=== PATIENT | male | born 1965 | race American Indian/Alaskan Native ===

== ENCOUNTER 2017-11-04 21:24 | Inpatient (IN) | payer SELFPAY ==
[2017-11-04 23:14] LABS: Basophils % (Auto) 0.5 % (0.0-1.8); Eosinophils % (Auto) 0.3 % (0.0-4.3); Hematocrit 43.3 % (35.5-45.6); Hemoglobin 14.1 gm/dl (11.8-15.2); Lymphocytes # (Auto) 2.1 K/mm3 (1.2-5.4); Lymphocytes % (Auto) 22.4 % (13.4-35.0); Mean Corpuscular HGB Conc 33 % (32-34); Mean Corpuscular Hemoglobin 27 pg (28-32); Mean Corpuscular Volume 84 fl (84-94); Monocytes # (Auto) 0.8 K/mm3 (0.0-0.8); Monocytes % (Auto) 8.2 % (0.0-7.3); Platelet Count 241 K/mm3 (140-440); Red Blood Count 5.18 M/mm3 (3.65-5.03); Red Cell Distribution Width 17.5 % (13.2-15.2)
--- NOTE | 2017-11-04 23:22 | Emergency Department Report ---
HPI - General Chief Complaint: Dizziness Time Seen by Provider: 11/04/17 22:36 - HPI HPI: 52-year-old male presents to the emergency department with complaint of having an incident earlier while at work where he suddenly became very dizzy, as if he was going to pass out, and had some numbness and/or tingling to the left side of his face, the left side of the neck and his left hand. 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 He denies any chest pain, shortness of breath, vision change, headache. He does not have any past medical history. He did not take anything for her symptoms. Presentation. He does not have a primary care physician. Currently the patient says that the symptoms have mostly resolved but he is just concerned about what occurred earlier. He has a tobacco smoker and occasionally will smoke marijuana. ED Past Medical Hx - Past Medical History Additional medical history: Back pain - Surgical History Additional Surgical History: back - Social History Smoking Status: Current Every Day Smoker Substance Use Type: None - Medications Home Medications: Home Medications Medication Instructions Recorded Confirmed Last Taken Type Methocarbamol [Robaxin TAB] 750 mg PO BID #20 tab 04/11/15 Unknown Rx oxyCODONE /ACETAMINOPHEN [Percocet 1 tab PO Q6HR PRN #10 tablet 04/11/15 Unknown Rx 5/325] ED Review of Systems ROS: Stated complaint: HEADACHES Other details as noted in HPI Comment: All other systems reviewed and negative Constitutional: denies: chills, fever Eyes: denies: eye pain, eye discharge, vision change ENT: denies: ear pain, throat pain Respiratory: denies: cough, shortness of breath, wheezing Cardiovascular: denies: chest pain, palpitations Gastrointestinal: denies: abdominal pain, nausea, diarrhea Genitourinary: denies: urgency, dysuria Musculoskeletal: denies: back pain, joint swelling, arthralgia Skin: denies: rash, lesions Neurological: numbness, paresthesias, other (dizziness) Physical Exam - Physical Exam Vital Signs: Vital Signs 11/04/17 22:16 Temperature 98.4 F Pulse Rate 61 Respiratory 18 Rate Blood Pressure 137/73 O2 Sat by Pulse 98 Oximetry Physical Exam: GENERAL: The patient is well-developed well-nourished. HENT: Normocephalic. Atraumatic. Patient has moist mucous membranes. EYES: Extraocular motions are intact. Pupils equal reactive to light bilaterally. NECK: Supple. Trachea is midline. CHEST/LUNGS: Clear to auscultation. There is no respiratory distress noted. HEART/CARDIOVASCULAR: Regular. There is no tachycardia. There is no murmur. ABDOMEN: Abdomen is soft, nontender. Patient has normal bowel sounds. There is no abdominal distention. SKIN: Skin is warm and dry. NEURO: The patient is awake, alert, and oriented. The patient is cooperative. There is normal speech. Cranial nerves II through XII grossly intact. No pronator drift. No dysmetria. There is some decreased subjective sensation to the left side of the face when compared to the right. MUSCULOSKELETAL: There is no tenderness or deformity. There is no limitation range of motion. There is no evidence of acute injury. Muscle strength 5 out of 5 upper and lower extremity bilaterally. ED Course Vital Signs 11/04/17 22:16 Temperature 98.4 F Pulse Rate 61 Respiratory 18 Rate Blood Pressure 137/73 O2 Sat by Pulse 98 Oximetry - Reevaluation(s) Reevaluation #1: 11/05/17 01:45 NIH Stroke Scale/Score (NIHSS) RESULT SUMMARY: 1 points NIH Stroke Scale INPUTS: 1A: Level of consciousness > 0 = Alert; keenly responsive 1B: Ask month and age > 0 = Both questions right 1C: 'Blink eyes' & 'squeeze hands' > 0 = Performs both tasks 2: Horizontal extraocular movements > 0 = Normal 3: Visual dumas > 0 = No visual loss 4: Facial palsy > 0 = Normal symmetry 5A: Left arm motor drift > 0 = No drift for 10 seconds 5B: Right arm motor drift > 0 = No drift for 10 seconds 6A: Left leg motor drift > 0 = No drift for 5 seconds 6B: Right leg motor drift > 0 = No drift for 5 seconds 7: Limb Ataxia > 0 = No ataxia 8: Sensation > 1 = Mild-moderate loss: less sharp/more dull 9: Language/aphasia > 0 = Normal; no aphasia 10: Dysarthria > 0 = Normal 11: Extinction/inattention > 0 = No abnormality - Consultations Consultation #1: I spoke with Dr. Saxena, telemedicine neurologist, who listened to the patient's case presentation and recommends admission for this patient for an MRI and further stroke workup. 11/05/17 01:42 ED Medical Decision Making - Lab Data Result diagrams: 11/04/17 22:54 11/04/17 22:54 - EKG Data -: EKG Interpreted by Me EKG shows normal: sinus rhythm, axis (left axis deviation), intervals, QRS complexes (Q waves to the septal leads), ST-T waves (nonspecific ST-T waves) Rate: normal - EKG Data When compared to previous EKG there are: previous EKG unavailable Interpretation: other (signs rhythm, 92 bpm, left axis deviation, Q waves to the septal leads, nonspecific ST-T waves) - Radiology Data Radiology results: report reviewed PROCEDURE: CT HEAD/BRAIN WO CON TECHNIQUE: Computerized tomography of the head was performed without contrast material. HISTORY: dizziness COMPARISON: No prior studies are available for comparison. FINDINGS: Skull and scalp: Normal. Paranasal sinuses: Normal. Ventricles and subarachnoid spaces: Normal. Cerebrum: No evidence of hemorrhage, acute infarction or mass . Cerebellum and brainstem: No evidence of hemorrhage, acute infarction or mass. Vasculature: Normal. Comments: None. IMPRESSION: There is no evidence of an acute intracranial process Transcribed By: [facility] Dictated By: KIM MÉNDEZ MD Electronically Authenticated By: KIM MÉNDEZ MD Signed Date/Time: 11/04/17 7650 - Medical Decision Making Patient presents with complaint of having some acute dizziness and some numbness to the left side of the head/face/neck and into the left hand. Patient 's symptoms have improved and right now he just has some numbness towards the left side of the face. CT of the head did not show any shift, mass, ischemia or any acute process. On physical exam, the patient is an NIH stroke scale of 1. On top of it being a low stroke scale, the last known well time was many hours ago while the patient was still working and he is outside any window for TPA. No pronator drift or dysmetria. Labs were unremarkable and do not show any etiology of his symptoms. His EKG does not show any ST elevation [place]. After speaking with the telemedicine neurologist, the patient will be admitted to the hospital for further evaluation that will most likely include an MRI. He has been accepted for admission by the hospitalist, Dr Trevino. - Differential Diagnosis TIA, CVA, dysrhythmia, hypoglycemia Critical Care Time: No Critical care attestation.: If time is entered above; I have spent that time in minutes in the direct care of this critically ill patient, excluding procedure time. ED Disposition Clinical Impression: Dizziness, Numbness and tingling of left side of face, Tobacco use Disposition: OP ADMIT IP TO THIS HOSP Is pt being admited?: Yes Does the pt Need Aspirin: Yes Condition: Stable Time of Disposition: 01:46
--- NOTE | 2017-11-04 23:47 | Cat Scan Report ---
FINAL REPORT PROCEDURE: CT HEAD/BRAIN WO CON TECHNIQUE: Computerized tomography of the head was performed without contrast material. HISTORY: dizziness COMPARISON: No prior studies are available for comparison. FINDINGS: Skull and scalp: Normal. Paranasal sinuses: Normal. Ventricles and subarachnoid spaces: Normal. Cerebrum: No evidence of hemorrhage, acute infarction or mass . Cerebellum and brainstem: No evidence of hemorrhage, acute infarction or mass. Vasculature: Normal. Comments: None. IMPRESSION: There is no evidence of an acute intracranial process
[2017-11-05 00:33] LABS: Alanine Aminotransferase 17 units/L (7-56); Albumin 4.5 g/dL (3.9-5); BUN/Creatinine Ratio 11; Blood Urea Nitrogen 15 mg/dL (9-20); Calcium 9.5 mg/dL (8.4-10.2); Hemolysis Index 14
[2017-11-05] MEDS ORDERED: PROVENTIL IH PRN (01:43)
[2017-11-05] MEDS ORDERED: MILK OF MAGNESIA PO PRN (01:43)
[2017-11-05] MEDS ORDERED: DULCOLAX PR PRN (01:43)
[2017-11-05] MEDS ORDERED: SODIUM CHLORIDE FLUSH SYRINGE 10 ML IV PRN (01:43)
[2017-11-05] MEDS ORDERED: TYLENOL PO PRN (01:43)
[2017-11-05] MEDS ORDERED: ZOFRAN IV PRN (01:43)
[2017-11-05] MEDS ORDERED: BABY ASPIRIN PO ONE (01:46)
--- NOTE | 2017-11-05 01:50 | History and Physical Report ---
History of Present Illness Date of examination: 11/05/17 History of present illness: Fluids 2-year-old man with medical problems comes emergency room with complaints of feeling dizzy while at work around 8:00. He'll also experience left side numbness from his face down to the legs. He symptoms have now been resolved Review of systems Constitutional: no weight loss, chills, fever Ears, eyes, nose, mouth and throat: no nasal congestion, no nasal discharge, no sinus pressure, no vision change, no red eye. Neck: No neck pain or rigidity. Cardiovascular: no chest pain, palpitations Respiratory: no cough, shortness of breath Gastrointestinal: no abdominal pain hematochezia Genitourinary : no frequency , no hematuria Musculoskeletal: no joint swelling or muscle ache Integumentary: no rash, no pruritis Neurological: no focal weakness Endocrine: no cold or heat intolerance, no polyuria or polydipsia Hematologic/Lymphatic: no easy bruising, no easy bleeding, no gland swelling Allergic/Immunologic: no urticaria, no angioedema. PAST MEDICAL HISTORY: None PAST SURGICAL HISTORY: Lobectomy SOCIAL HISTORY: No alcohol, marijuana and tobacco use FAMILY HISTORY: Hypertension Medications and Allergies Allergies Allergy/AdvReac Type Severity Reaction Status Date / Time No Known Allergies Allergy Verified 04/22/13 06:31 Home Medications Medication Instructions Recorded Confirmed Last Taken Type Methocarbamol [Robaxin TAB] 750 mg PO BID #20 tab 04/11/15 Unknown Rx oxyCODONE /ACETAMINOPHEN [Percocet 1 tab PO Q6HR PRN #10 tablet 04/11/15 Unknown Rx 5/325] Exam - Physical Exam Narrative exam: Gen. appearance: Patient lying in bed, no apparent distress HEENT: Normocephalic, atraumatic, pupils equally round and reactive to light, extraocular movement intact, and no sclericterus,. No JVD or thyromegaly or nodule,neck supple, no carotid bruit ,mucous membranes moist, no exudate or erythema Heart: S1, S2, regular rate and rhythm Lungs: Clear bilaterally, breathing comfortable Abdomen: Positive bowel sounds, non-tender, nondistended, no organomegaly Extremity:no edema cyanosis, clubbing Skin: no rash, dry, warm Neuro: Oriented 3, cranial nerves II-12 intact, speech is fluent, motor and sensory intact - Constitutional Vitals: Temp Pulse Resp BP Pulse Ox 98.4 F 83 14 122/71 98 11/04/17 22:16 11/05/17 00:00 11/05/17 00:00 11/05/17 00:00 11/05/17 00:00 Results - Labs CBC & Chem 7: 11/04/17 22:54 11/04/17 22:54 Labs: Abnormal lab results 11/04/17 11/04/17 Range/Units 22:54 22:54 RBC 5.18 H (3.65-5.03) M/mm3 MCH 27 L (28-32) pg RDW 17.5 H (13.2-15.2) % [place] % (Auto) 8.2 H (0.0-7.3) % Magnesium 2.40 H (1.7-2.3) mg/dL - Imaging and Cardiology CT Scan - head: report reviewed Assessment and Plan Assessment TIA Plan Admit to medicine Obtain MRI of the head, carotid Doppler, echo Neurochecks, swallow screen Start aspirin, statin [employer] neurology, physical and occupational therapy DVT prophylaxis
[2017-11-05 01:58] LABS: Bilirubin,Urine NEG (Negative); Blood,Urine NEG (Negative); Color,Urine Yellow (Yellow); Mucus,Urine FEW /HPF; Protein,Urine <15 mg/dL mg/dL (Negative); Urobilinogen,Urine < 2.0 mg/dL (<2.0)
[2017-11-05] MEDS ORDERED: BABY ASPIRIN ONE (02:00)
[2017-11-05 07:23] VITALS: BP 110/58
[2017-11-05] MEDS ORDERED: ASPIRIN PO SCH (10:00)
[2017-11-05] MEDS ORDERED: LOVENOX SUB-Q SCH (10:00)
--- NOTE | 2017-11-05 10:46 | Magnetic Resonance Report ---
MRI BRAIN WITHOUT CONTRAST: 11/05/17 01:43:00 CLINICAL: Stroke. COMPARISON: CT Head 11/04/17 TECHNIQUE: Axial diffusion, T1, T2, gradient echo T2*, coronal and axial FLAIR and sagittal T1 sequences on a 1.5 Brigitte magnet. FINDINGS: Normal ventricles and sulci. No restricted diffusion and no abnormal signal on any sequence. No mass or mass effect. No hemorrhage, edema or extra-axial collection. Normal pituitary and optic chiasm. The brainstem and cerebellum are normal. Intact vascular flow voids. Normal sinuses. The orbits, and soft tissues are normal. Normal calvarium and skull base. IMPRESSION: Normal study.
--- NOTE | 2017-11-05 12:47 | Discharge Summary ---
Providers - Providers Date of Admission: 11/05/17 01:43 Date of discharge: 11/05/17 Attending physician: BENITA SALDANA 11/05/17 01:43 Occupational Therapy Evaluate and Treat [CONS] Routine Comment: Reason For Exam: Neuro deficits Physical Therapy Evaluation and Treat [CONS] Routine Comment: Reason For Exam: Neuro deficits 11/05/17 01:54 Consult to Physician [CONS] Routine Comment: Consulting Provider: LORI GALEAS Physician Instructions: Reason For Exam: tia Primary care physician: SOCK IRONER Hospitalization Condition: Fair Disposition: DC-01 TO HOME OR SELFCARE - Discharge Diagnoses (1) TIA (transient ischemic attack) Status: Acute Core Measure Documentation - Palliative Care Palliative Care/ Comfort Measures: Not Applicable - Core Measures Any of the following diagnoses?: none Exam - Constitutional Vitals: Temp Pulse Resp BP Pulse Ox 98.3 F 96 H 17 110/58 96 11/05/17 09:00 11/05/17 09:00 11/05/17 09:00 11/05/17 07:00 11/05/17 09:00 Plan Activity: advance as tolerated Diet: low fat, low cholesterol, low salt Additional Instructions: 1.Follow up with PCP in 1 week Follow up with: PRIMARY CARE, [Primary Care Provider] - 3-5 Days Prescriptions: Aspirin EC [Aspirin Enteric Coated TAB] 325 mg PO QDAY #30 tablet. Simvastatin 20 mg PO DAILY #30 tablet
[2017-11-05 14:22] LABS: Chol/HDL Ratio 2.98 %
== END 2017-11-05 14:44 | disposition home or self-care (01) | DRG 69 ==
LOC: ED 21:24 → 4A 11-05 01:43 → UNDODISIN 11-05 12:40 → IMCU 11-05 13:55
PROVIDERS: ADMIT Internal Medicine; ATTEND Internal Medicine
DX: G45.9 Transient cerebral ischemic attack, unspecified (principal); F17.200 Nicotine dependence, unspecified, uncomplicated; Z82.49 Family history of ischemic heart disease and other diseases of the circulatory system
CPT/HCPCS: 36415; 70450; 70551; 80053; 80061; 81001; 82962; 83735; 84443; 84484; 85025; 93005; 93010; 93880; J1650